=== PATIENT | female | born 1955 | race Caucasian/White ===

== ENCOUNTER → 2021-07-28 | Outpatient (CLI) | payer MEDICARE ==
[~2021-07-28] MED LIST: ASP81TEC PO; CEFP500T4 PO; CIPR-17 PO; CPR500T PO; DESV100T PO; DIAZ10TA3 PO; DNPZ10T PO; ESOM20SU PO; EXEN10PE4 SQ; FAMO20TA5; FAMO20TA5 PO; FLT05NA16 INH; GABA300C PO; HDR2T PO; HYDR-2889 PO; HYDR1TAB PO; HYDR1TAB66 PO; HYDROCODONE 7.5 MG PO; LIOT25TA4 PO; LOVA40TA2 PO; LVT.025T PO; METO50TA7; MTC10T PO; MTF500T PO; MTP25TSR; MTP25TSR PO; MULT-963 PO; NF-ESOM40C; NF-ESOM40C PO; NITR100C3 PO; OMEP20CA6 PO; PIOG1TAB PO; SRTR100T; TOPI100T; TOPI200T2 PO; TPR100T PO; TRIA16.5 NS; TRM50T; [UNRECOGNIZED DRUG - OTHER] IV
[2021-07-28 12:03] LABS: ALBUMIN 4.3 GM/DL (3.2-4.5); BILIRUBIN,TOTAL 0.3 MG/DL (0.1-1.0); CREATININE SERUM 0.8 MG/DL (0.60-1.30); POTASSIUM 4.1 MMOL/L (3.6-5.0); TOTAL PROTEIN 7.4 GM/DL (6.4-8.2)
== END ==
LOC: LAB 11:17
PROVIDERS: ATTEND Internal Medicine
DX: E03.9 Hypothyroidism, unspecified (principal)
CPT/HCPCS: 36415; 80053; 83036; 84443